=== PATIENT | male | born 1945 | race Caucasian/White ===

== ENCOUNTER 2021-05-06 18:14 | Inpatient (IN) | payer MEDICARE, BC ==
[~2021-05-06] VITALS: Ht 172.7 cm; Wt 84.1 kg
[2021-05-06 19:39] LABS: BASOPHILS # (AUTO) 0.1 X10'3 (0-0.2); BASOPHILS % (AUTO) 0.7 % (0-1); EOSINOPHILS # (AUTO) 0.1 X10'3 (0-0.9); EOSINOPHILS % (AUTO) 1.4 % (0-6); HEMATOCRIT 37.6 % (42.0-52.0); HEMOGLOBIN 12.5 g/dl (14.0-17.9); LYMPHOCYTES # (AUTO) 1.8 X10'3 (1.1-4.8); MEAN CORPUSCULAR HEMOGLOBIN 31.4 PG (27.0-31.0); MEAN CORPUSCULAR HGB CONC 33.3 g/dL (33.0-36.5); MEAN CORPUSCULAR VOLUME 94.3 FL (78-98); MEAN PLATELET VOLUME 9.9 FL (7.4-10.4); MONOCYTES % (AUTO) 10.1 % (2-12); NEUTROPHILS # (AUTO) 6.6 X10'3 (1.8-7.7); NEUTROPHILS % (AUTO) 68.8 % (42-75); PLATELET COUNT 167 X10'3 (140-440); RED BLOOD COUNT 3.99 X10'6 (4.70-6.10); RED CELL DISTRIBUTION WIDTH 14.4 % (11.5-14.5); WHITE BLOOD COUNT 9.5 X10'3 (4.5-11.0)
[2021-05-06 19:50] LABS: ALANINE AMINOTRANSFERASE 43 U/L (12-78); ALBUMIN 3.4 G/DL (3.4-5.0); ALBUMIN/GLOBULIN RATIO 0.9 (1.1-1.5); ALKALINE PHOSPHATASE 96 IU/L (46-116); ANION GAP 12 (8-16); ASPARTATE AMINO TRANSFERASE 51 U/L (10-37); BILIRUBIN,TOTAL 0.7 MG/DL (0.1-1.0); BLOOD UREA NITROGEN 25 MG/DL (7-18); BUN/CREATININE RATIO 15.9 (5.4-32.0); CALCIUM 8.4 MG/DL (8.5-10.1); CHLORIDE 103 MMOL/L (99-107); CREATININE 1.57 MG/DL (0.60-1.10); GLUCOSE 133 MG/DL (70-104); POTASSIUM 3.5 MMOL/L (3.5-5.1); SODIUM 141 MMOL/L (135-145); TOTAL CARBON DIOXIDE 25.6 MMOL/L (24-32); TOTAL PROTEIN 7.4 G/DL (6.4-8.2); eGFR 43 ML/MIN
[2021-05-06 20:32] LABS: CLARITY,URINE CLEAR (Clear); COLOR,URINE YELLOW (Yellow); GLUCOSE, URINE NEGATIVE (Neg); KETONES,URINE NEGATIVE (Neg); LEUKOCYTE ESTERASE ,URINE NEGATIVE (Neg); NITRITES, URINE NEGATIVE (Neg); OCCULT BLOOD,URINE NEGATIVE (Neg); PROTEIN,URINE NEGATIVE (Neg); UROBILINOGEN,URINE 0.2 E.U/dL (0.2-1.0)
[2021-05-06 20:36] LABS: UA COLLECTION TYPE CLN CATCH MIDSTREAM
[2021-05-06] MEDS ORDERED: temazepam 15mg capsule PO PRN (21:00)
[2021-05-06 22:40] LABS: D-DIMER 0.72 MG/L FEU (0-0.50)
[2021-05-06] MEDS ORDERED: CefTRIAXone 2gm/D5W 50ml BAG 50 ML IV ONE (22:40)
[2021-05-06] MEDS ORDERED: aspirin 325mg tablet PO ONE (23:45)
[2021-05-06] MEDS ORDERED: heparin 25,000 UNIT/250ml bag 250 ML IV SCH (23:45)
[2021-05-06] MEDS ORDERED: heparin 10,000 units/1 ML INJ IV PRN (23:45)
[2021-05-06] MEDS ORDERED: heparin 10,000 units/1 ML INJ IV ONE (23:45)
[2021-05-06] MEDS ORDERED: acetaminophen 650mg rectal suppository RC PRN (23:55)
[2021-05-06] MEDS ORDERED: MESSAGE TO PHARMACY PO ONE (23:55)
[2021-05-06] MEDS ORDERED: dextrose ORAL solution 15 GM/59 ML bottle PO PRN ×2 (23:55)
[2021-05-06] MEDS ORDERED: bisacodyl 10mg suppository rectal RC PRN (23:55)
[2021-05-06] MEDS ORDERED: HYDROmorphone inj. 0.5 MG/0.5 ML DISP.SYRIN IV PRN (23:55)
[2021-05-06] MEDS ORDERED: ondansetron 4mg rapidly disintigrating tab PO PRN (23:55)
[2021-05-06] MEDS ORDERED: morphine 2 MG/ML inj. syringe IV PRN ×2 (23:55)
[2021-05-06] MEDS ORDERED: mag hydrox/Alum hydrox/simeth 30ml oral suspension PO PRN (23:55)
[2021-05-06] MEDS: normal saline 1000ml 1,000 ML IV SCH (23:55)
[2021-05-06] MEDS ORDERED: diphenhydrAMINE 50 mg/ml inj IV PRN (23:55)
[2021-05-06] MEDS ORDERED: glucagon, human recombinant 1mg kit SUBCUT PRN (23:55)
[2021-05-06] MEDS ORDERED: HYDROcodone/acetaminophen 10/325mg tab PO PRN (23:55)
[2021-05-06] MEDS ORDERED: HYDROcodone/acetaminophen 5mg/325mg tablet PO PRN (23:55)
[2021-05-06] MEDS ORDERED: dextrose 50%-water 50ml dispensing syringe IV PRN ×2 (23:55)
[2021-05-06] MEDS ORDERED: diphenhydrAMINE 25mg capsule PO PRN (23:55)
[2021-05-06] MEDS ORDERED: acetaminophen 325mg tablet PO PRN ×2 (23:55)
[2021-05-06] MEDS ORDERED: ondansetron/PF 4mg/2ml inj IV PRN (23:55)
[2021-05-06] MEDS ORDERED: magnesium hydroxide 30ml (MOM) UD suspension PO PRN (23:55)
[2021-05-07] VITALS (19 sets, daily range): BP systolic 106–140; BP diastolic 50–83
[2021-05-07 00:36] LABS: LIPASE 287 U/L (73-393)
--- NOTE | 2021-05-07 00:57 | NUR ---
Pt awake and alert. Denies SOB or CP. Heparin drip continues
[2021-05-07] MEDS ORDERED: aspirin 81mg tab.chew PO ONE (01:00)
[2021-05-07] MEDS ORDERED: heparin 10,000 units/1 ML INJ IV ONE (01:00)
[2021-05-07] MEDS ORDERED: heparin 10,000 units/1 ML INJ IV PRN (01:00)
[2021-05-07] MEDS ORDERED: heparin 25,000 UNIT/250ml bag 250 ML IV SCH (01:00)
[2021-05-07 01:20] LABS: HEMOGLOBIN A1C 6.6 % (4.5-6.2)
[2021-05-07 02:10] LABS: MAGNESIUM 1.4 MG/DL (1.5-2.4); PHOSPHORUS 3.3 MG/DL (2.3-4.5)
[2021-05-07] MEDS: nitroGLYCERIN 0.2mg/hour patch TD SCH ×2 (03:16→08:12)
[2021-05-07] MEDS ORDERED: potassium Cl 40MEQ/1/2NS 520ml 520 ML IV PRN (04:00)
[2021-05-07] MEDS ORDERED: magnesium 4gm in 100ml NS 100 ML IV PRN (04:00)
[2021-05-07] MEDS ORDERED: potassium Cl 20 mEq SR tablet PO PRN ×2 (04:00)
[2021-05-07] MEDS ORDERED: magnesium Cl slow-release 64mg tablet PO PRN (04:00)
[2021-05-07 04:51] LABS: BASOPHILS % (AUTO) 0.5 % (0-1); EOSINOPHILS # (AUTO) 0.2 X10'3 (0-0.9); EOSINOPHILS % (AUTO) 2.4 % (0-6); HEMATOCRIT 34.9 % (42.0-52.0); HEMOGLOBIN 12.1 g/dl (14.0-17.9); LYMPHOCYTES % (AUTO) 24.4 % (21-51); MEAN CORPUSCULAR HEMOGLOBIN 31.9 PG (27.0-31.0); MEAN CORPUSCULAR HGB CONC 34.6 g/dL (33.0-36.5); MEAN CORPUSCULAR VOLUME 92.1 FL (78-98); MEAN PLATELET VOLUME 9.7 FL (7.4-10.4); MONOCYTES # (AUTO) 0.8 X10'3 (0-0.9); MONOCYTES % (AUTO) 9.7 % (2-12); NEUTROPHILS # (AUTO) 5.1 X10'3 (1.8-7.7); PLATELET COUNT 169 X10'3 (140-440); RED BLOOD COUNT 3.78 X10'6 (4.70-6.10); RED CELL DISTRIBUTION WIDTH 14.1 % (11.5-14.5); WHITE BLOOD COUNT 8.2 X10'3 (4.5-11.0)
[2021-05-07 05:06] LABS: PARTIAL THROMBOPLASTIN TIME 31 SECONDS (22-32)
[2021-05-07 05:08] LABS: ALANINE AMINOTRANSFERASE 37 U/L (12-78); ALBUMIN/GLOBULIN RATIO 0.8 (1.1-1.5); ALKALINE PHOSPHATASE 90 IU/L (46-116); ANION GAP 12 (8-16); ASPARTATE AMINO TRANSFERASE 45 U/L (10-37); BLOOD UREA NITROGEN 23 MG/DL (7-18); BUN/CREATININE RATIO 16.9 (5.4-32.0); CALCIUM 8.2 MG/DL (8.5-10.1); CHLORIDE 105 MMOL/L (99-107); CREATININE 1.36 MG/DL (0.60-1.10); GLUCOSE 128 MG/DL (70-104); POTASSIUM 3.5 MMOL/L (3.5-5.1); SODIUM 141 MMOL/L (135-145); TOTAL CARBON DIOXIDE 24.5 MMOL/L (24-32); TOTAL PROTEIN 6.7 G/DL (6.4-8.2); eGFR 51 ML/MIN
[2021-05-07 05:11] LABS: CHOL/HDL RATIO 2.9 (0.00-4.99); CHOLESTEROL 114 MG/DL (0-200); HDL CHOLESTEROL 39 MG/DL (35-60); LDL CHOLESTEROL 57 MG/DL (50-100); TRIGLYCERIDES 100 MG/DL (20-135)
[2021-05-07] MEDS ORDERED: nitroGLYCERIN 0.2mg/hour patch TD SCH (08:00)
[2021-05-07] MEDS ORDERED: docusate sod 100mg capsule PO SCH (08:00)
[2021-05-07] MEDS: K and/or MAG REPLACEMENT MC SCH ×2 (08:00→20:00)
[2021-05-07] MEDS: methylPREDNISolone sod succ 125mg/2ml vial IV SCH ×2 (08:12→20:11)
[2021-05-07] MEDS: azithromycin 250mg tablet PO SCH (08:12)
[2021-05-07] MEDS: pantoprazole 40mg Tablet.DR PO SCH (08:12)
[2021-05-07] MEDS: normal saline 1000ml 1,000 ML IV SCH ×2 (09:55→19:13)
[2021-05-07] MEDS ORDERED: OMEP-50 PO (10:39)
[2021-05-07] MEDS ORDERED: ATOR-2 PO (10:39)
[2021-05-07] MEDS ORDERED: CYAN500T46 PO (10:39)
[2021-05-07] MEDS ORDERED: GLUC-95 PO (10:39)
[2021-05-07] MEDS ORDERED: ASPI-1265 PO (10:39)
[2021-05-07] MEDS ORDERED: HYDR12.55 PO (10:39)
[2021-05-07] MEDS ORDERED: BLACK SEED OIL PO (10:39)
[2021-05-07] MEDS ORDERED: TURM500C4 PO (10:39)
[2021-05-07] MEDS ORDERED: LOSA25TA41 PO (10:39)
[2021-05-07] MEDS ORDERED: LACT1CAP65 PO (10:39)
[2021-05-07] MEDS ORDERED: GINK120T4 PO (10:39)
[2021-05-07] MEDS ORDERED: METF-436 PO ×2 (10:39)
[2021-05-07] MEDS ORDERED: ALBU18HF2 INH (10:39)
[2021-05-07] MEDS ORDERED: METO-384 PO (10:39)
[2021-05-07] MEDS ORDERED: ALLO100T15 PO (10:39)
[2021-05-07] MEDS ORDERED: MULT-1085 PO (10:39)
[2021-05-07] MEDS ORDERED: MELA5CAP PO (10:39)
[2021-05-07] MEDS ORDERED: NITR0.4T51 SL (10:39)
[2021-05-07] MEDS ORDERED: ASCO-10 PO (10:39)
[2021-05-07] MEDS ORDERED: LIDOcaine 1% (10mg/ml)w/preservative injection 20ml MDV ONE (11:15)
[2021-05-07] MEDS ORDERED: midazolam 1 mg/ML 2ml injection ONE (11:15)
[2021-05-07] MEDS ORDERED: fentaNYL/PF 50MCG/1 ML 2ML syringe ONE (11:15)
[2021-05-07] MEDS ORDERED: nitroGLYCERIN-Tridil 50MG/D5W 250 ML IV ONE (11:15)
[2021-05-07] MEDS ORDERED: heparin 1,000unit/ml 10ml vial 10 ML ONE (11:16)
[2021-05-07] MEDS ORDERED: iohexol 350MG/ML 100ml bottle IV ONE (11:16)
[2021-05-07] MEDS ORDERED: iohexol 350 MG/ML 50ML vial IV ONE (11:16)
[2021-05-07] MEDS ORDERED: nitroGLYCERIN 0.4mg SUBLingual tab SL PRN (11:20)
--- NOTE | 2021-05-07 11:40 | NUR ---
Pt taken to [facility] cath with Dr Smith
[2021-05-07] MEDS ORDERED: iohexol 350 MG/1 ML 200ml bottle ONE (12:07)
[2021-05-07] MEDS: allopurinol 100mg tablet PO SCH ×2 (13:00→20:59)
[2021-05-07] MEDS ORDERED: clopidogrel 300mg tablet ONE (13:25)
--- NOTE | 2021-05-07 13:44 | NUR ---
DM consult: Pt with A1c 6.6%, well controlled. DM education not warranted at this time. Will continue to follow. Addendum: 05/07/21 at [address] Amended: Links added.
[2021-05-07] MEDS ORDERED: normal saline 1000ml 1,000 ML IV ONE (14:30)
[2021-05-07] MEDS ORDERED: albuterol 2.5 MG/3 ML nebule NEB PRN (14:35)
[2021-05-07] MEDS ORDERED: cyclobenzaprine 10mg tablet PO PRN (14:40)
[2021-05-07] MEDS ORDERED: magnesium hydroxide 30ml (MOM) UD suspension PO PRN (14:40)
[2021-05-07] MEDS ORDERED: OXAZEpam 15mg capsule PO PRN (14:40)
[2021-05-07] MEDS ORDERED: HYDROcodone/acetaminophen 10/325mg tab PO PRN ×2 (14:40)
[2021-05-07] MEDS ORDERED: acetaminophen 325mg tablet PO PRN (14:40)
[2021-05-07] MEDS ORDERED: proCHLORperazine 10 MG/2 ml inj IV PRN (14:40)
--- NOTE | 2021-05-07 14:47 | NUR ---
Patient in room ICU 2045. I have received report from Deshawn OLIVAS and had the opportunity to ask questions and assume patient care. Pt flat in bed right groin soft. sheath in place
[2021-05-07] MEDS: MESSAGE TO NURSING PO SCH (14:52)
--- NOTE | 2021-05-07 17:16 | NUR ---
Pt 1700 blood sugar 219 but pt had not been fasting since lunch. 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
[2021-05-07 17:24] LABS: CHOL/HDL RATIO 3.6 (0.00-4.99); CHOLESTEROL 131 MG/DL (0-200); HDL CHOLESTEROL 36 MG/DL (35-60); LDL CHOLESTEROL 78 MG/DL (50-100); TRIGLYCERIDES 119 MG/DL (20-135)
[2021-05-07] MEDS: docusate sod 100mg capsule PO SCH (20:12)
[2021-05-07] MEDS: metoprolol succinate 25mg (24-HOUR) SR. Tablet PO SCH (20:13)
[2021-05-07] MEDS ORDERED: atorvastatin 20mg tablet PO SCH (21:00)
[2021-05-07] MEDS ORDERED: losartan 25mg tablet PO SCH (21:00)
[2021-05-07] MEDS ORDERED: Melatonin 3mg tablet PO SCH (21:00)
[2021-05-08] VITALS (12 sets, daily range): BP systolic 101–124; BP diastolic 49–72
--- NOTE | 2021-05-08 04:21 | NUR ---
2300 FemoStop gently removed, Site remained c/d/i. No bleeding or hematoma formation. Pt tolerated it well. Addendum: 05/08/21 at 0454 by Jesika Hood RN Amended: Links added.
[2021-05-08] MEDS: normal saline 1000ml 1,000 ML IV SCH (05:40)
[2021-05-08] MEDS: MESSAGE TO NURSING PO SCH (06:39)
[2021-05-08 07:03] LABS: BASOPHILS % (AUTO) 0 % (0-1); EOSINOPHILS % (AUTO) 0 % (0-6); HEMATOCRIT 37.8 % (42.0-52.0); HEMOGLOBIN 12.4 g/dl (14.0-17.9); LYMPHOCYTES # (AUTO) 0.8 X10'3 (1.1-4.8); LYMPHOCYTES % (AUTO) 7.4 % (21-51); MEAN CORPUSCULAR HEMOGLOBIN 31.2 PG (27.0-31.0); MEAN CORPUSCULAR HGB CONC 32.8 g/dL (33.0-36.5); MEAN CORPUSCULAR VOLUME 95.1 FL (78-98); MEAN PLATELET VOLUME 10.2 FL (7.4-10.4); MONOCYTES # (AUTO) 0.2 X10'3 (0-0.9); MONOCYTES % (AUTO) 1.8 % (2-12); NEUTROPHILS # (AUTO) 10.1 X10'3 (1.8-7.7); NEUTROPHILS % (AUTO) 90.8 % (42-75); PLATELET COUNT 200 X10'3 (140-440); RED BLOOD COUNT 3.98 X10'6 (4.70-6.10); RED CELL DISTRIBUTION WIDTH 14.3 % (11.5-14.5); WHITE BLOOD COUNT 11.2 X10'3 (4.5-11.0)
[2021-05-08 07:30] LABS: ALANINE AMINOTRANSFERASE 59 U/L (12-78); ALBUMIN 2.7 G/DL (3.4-5.0); ALBUMIN/GLOBULIN RATIO 0.7 (1.1-1.5); ALKALINE PHOSPHATASE 90 IU/L (46-116); ANION GAP 12 (8-16); ASPARTATE AMINO TRANSFERASE 46 U/L (10-37); BILIRUBIN,TOTAL 0.6 MG/DL (0.1-1.0); BLOOD UREA NITROGEN 23 MG/DL (7-18); BUN/CREATININE RATIO 18.4 (5.4-32.0); CALCIUM 8.2 MG/DL (8.5-10.1); CHLORIDE 108 MMOL/L (99-107); CREATININE 1.25 MG/DL (0.60-1.10); GLUCOSE 194 MG/DL (70-104); SODIUM 143 MMOL/L (135-145); TOTAL PROTEIN 6.8 G/DL (6.4-8.2); eGFR 56 ML/MIN
[2021-05-08] MEDS ORDERED: pantoprazole 40mg Tablet.DR PO SCH (07:30)
[2021-05-08] MEDS: methylPREDNISolone sod succ 125mg/2ml vial IV SCH (07:48)
[2021-05-08] MEDS: azithromycin 250mg tablet PO SCH (07:49)
[2021-05-08] MEDS: metoprolol succinate 25mg (24-HOUR) SR. Tablet PO SCH (07:49)
[2021-05-08] MEDS: docusate sod 100mg capsule PO SCH (07:49)
[2021-05-08] MEDS: pantoprazole 40mg Tablet.DR PO SCH (07:50)
[2021-05-08] MEDS: allopurinol 100mg tablet PO SCH ×2 (07:50→12:59)
[2021-05-08] MEDS: K and/or MAG REPLACEMENT MC SCH (07:51)
[2021-05-08] MEDS ORDERED: cyanocobalamin 500mcg tablet PO SCH (08:00)
[2021-05-08] MEDS ORDERED: ascorbic acid 500mg tablet PO SCH (08:00)
[2021-05-08] MEDS ORDERED: multivitamins, therapeutics tablet PO SCH (08:00)
[2021-05-08] MEDS ORDERED: aspirin 325mg tablet PO SCH (08:00)
[2021-05-08] MEDS ORDERED: BLACK SEED OIL PO SCH (08:00)
[2021-05-08] MEDS ORDERED: aspirin 81mg tab.chew PO SCH (08:00)
[2021-05-08] MEDS: nitroGLYCERIN 0.2mg/hour patch TD SCH (08:00)
[2021-05-08] MEDS ORDERED: clopidogrel 75mg tablet PO SCH (08:00)
[2021-05-08] MEDS ORDERED: non-formulary drug (Turmeric/Turmeric Root Extract (Turmeric 500 mg Capsule) 1 CAP) PO SCH (08:00)
[2021-05-08] MEDS ORDERED: HYDROchlorothiazide 12.5mg capsule PO SCH (08:00)
[2021-05-08] MEDS ORDERED: non-formulary drug (Glucosamine HCl/Chondr Su A Na (Cidaflex Tablet) 1 TAB) PO SCH (08:00)
[2021-05-08] MEDS ORDERED: lactobacillus rhamnosus 10,000 MMU CELLS/CAPSULE PO SCH (08:00)
[2021-05-08] MEDS: insulin Lispro (HumaLOG) vial - multi-dose SQ SCH ×2 (08:05→13:05)
[2021-05-08] MEDS ORDERED: CLOP75TA34 PO (11:33)
--- NOTE | 2021-05-08 14:22 | NUR ---
Pt discharged just awaiting ride
[2021-05-09] MEDS ORDERED: metFORMIN 500mg tablet PO SCH ×2 (12:30→18:00)
== END 2021-05-08 14:30 | disposition home or self-care (01) | DRG 246 ==
LOC: ER 18:15 → ED HOLD 05-07 → PCU 3S 05-07 10:05 → ICU 2S 05-07 14:11
PROVIDERS: ADMIT Family Medicine; ATTEND Internal Medicine
PROC: 4A023N7 Measurement of Cardiac Sampling and Pressure, Left Heart, Percutaneous Approach (ICD-10-PCS; principal; 2021-05-06)
PROC: 027036Z Dilation of Coronary Artery, One Artery with Three Drug-eluting Intraluminal Devices, Percutaneous Approach (ICD-10-PCS; 2021-05-06)
PROC: B2111ZZ Fluoroscopy of Multiple Coronary Arteries using Low Osmolar Contrast (ICD-10-PCS; 2021-05-06)
PROC: B2151ZZ Fluoroscopy of Left Heart using Low Osmolar Contrast (ICD-10-PCS; 2021-05-06)
PROC: B3101ZZ Fluoroscopy of Thoracic Aorta using Low Osmolar Contrast (ICD-10-PCS; 2021-05-06)
PROC: B2131ZZ Fluoroscopy of Multiple Coronary Artery Bypass Grafts using Low Osmolar Contrast (ICD-10-PCS; 2021-05-06)
DX: T82.898A Other specified complication of vascular prosthetic devices, implants and grafts, initial encounter (principal); I21.4 Non-ST elevation (NSTEMI) myocardial infarction; I50.33 Acute on chronic diastolic (congestive) heart failure; J45.901 Unspecified asthma with (acute) exacerbation; N17.9 Acute kidney failure, unspecified; I13.0 Hypertensive heart and chronic kidney disease with heart failure and stage 1 through stage 4 chronic kidney disease, or unspecified chronic kidney disease; R06.03 Acute respiratory distress; G47.33 Obstructive sleep apnea (adult) (pediatric); E11.22 Type 2 diabetes mellitus with diabetic chronic kidney disease; E78.5 Hyperlipidemia, unspecified; E83.42 Hypomagnesemia; I25.10 Atherosclerotic heart disease of native coronary artery without angina pectoris; J44.9 Chronic obstructive pulmonary disease, unspecified; R26.2 Difficulty in walking, not elsewhere classified; R19.7 Diarrhea, unspecified; M10.9 Gout, unspecified; I35.0 Nonrheumatic aortic (valve) stenosis; N18.30 Chronic kidney disease, stage 3 unspecified; G47.30 Sleep apnea, unspecified; Y83.2 Surgical operation with anastomosis, bypass or graft as the cause of abnormal reaction of the patient, or of later complication, without mention of misadventure at the time of the procedure; Z20.822 Contact with and (suspected) exposure to COVID-19; Z79.02 Long term (current) use of antithrombotics/antiplatelets; Z79.82 Long term (current) use of aspirin; Z79.899 Other long term (current) drug therapy; Z82.49 Family history of ischemic heart disease and other diseases of the circulatory system; Z83.3 Family history of diabetes mellitus; Z95.1 Presence of aortocoronary bypass graft; Z86.73 Personal history of transient ischemic attack (TIA), and cerebral infarction without residual deficits; Z87.891 Personal history of nicotine dependence; Z98.1 Arthrodesis status; Z88.0 Allergy status to penicillin; Y92.89 Other specified places as the place of occurrence of the external cause
CPT/HCPCS: 93306; 93459; 96365; 99285; C9600; 36415; 71045; 71046; 76937; 80053; 80061; 81003; 82948; 83036; 83605; 83690; 83735; 83880; 84100; 84145; 84443; 84484; 85025; 85347; 85379; 85610; 85730; 87040; 87081; 87635; 93005; 99152; 99153; A6258; C1725; C1751; C1769; C1874; C1894; G0378; J0696; J1644; J1815; J2001; J2250; J2930; J3010; J3490; J7030; Q9967

== ENCOUNTER 2023-09-07 10:45 | Day surgery (SDC) | payer MEDICARE, BC ==
[2023-09-07] VITALS (26 sets, daily range): BP systolic 119–154; BP diastolic 52–98; PULSE 57–64; RESP 9–18; TEMP 98.1; O2SAT 92–100
[~2023-09-07] VITALS: Ht 172.7 cm; Wt 38.6 kg
[~2023-09-07 10:45] MED LIST: ALBU18HF2 INH; ALLO100T15 PO; ASCO-10 PO; ASPI-1265 PO; ATOR-2 PO; BLACK SEED OIL PO; CLOP75TA34 PO; CYAN500T46 PO; GINK120T4 PO; GLUC-95 PO; HYDR12.55 PO; LACT1CAP65 PO; LOSA25TA41 PO; MELA5CAP PO; METF-436 PO; METO-384 PO; MULT-1085 PO; NITR0.4T51 SL; OMEP20CA16 PO; TURM500C4 PO
[2023-09-07] MEDS ORDERED: morphine 10mg/ml inj. IV ONE (11:15)
[2023-09-07] MEDS ORDERED: MIDAZolam 1mg/ml 10ml vial IV ONE (11:15)
[2023-09-07] MEDS ORDERED: CLOP-32 PO (11:21)
[2023-09-07] MEDS ORDERED: normal saline 1000ml 1,000 ML IV SCH (11:40)
== END 2023-09-07 13:45 | disposition home or self-care (01) ==
LOC: SSTAY O 10:45 → EDSTATUS 13:00 → SSTAY O 13:45
PROVIDERS: ATTEND Internal Medicine Cardiovascular Disease
DX: I08.2 Rheumatic disorders of both aortic and tricuspid valves (principal); I27.20 Pulmonary hypertension, unspecified; I25.10 Atherosclerotic heart disease of native coronary artery without angina pectoris; Z95.1 Presence of aortocoronary bypass graft; Z79.899 Other long term (current) drug therapy; Z88.2 Allergy status to sulfonamides; Z88.0 Allergy status to penicillin
CPT/HCPCS: 82948; 93312; 93325; 94760; J2250; J2274; J7030; 93306; A4620